=== PATIENT | female | born 1980 | race Two or more races ===

== ENCOUNTER → 2024-04-22 | Outpatient (BNVA) | payer BC, SELFPAY | END | disposition home or self-care (01) | PROVIDERS: PCP Nurse Practitioner Family; Referring Provider Nurse Practitioner Family; Visit Provider Urology | DX: N28.1 Cyst of kidney, acquired (principal); G89.4 Chronic pain syndrome; I10 Essential (primary) hypertension; Z87.440 Personal history of urinary (tract) infections; K21.9 Gastro-esophageal reflux disease without esophagitis | CPT/HCPCS: 81003; 99212; G0463 ==

== ENCOUNTER → 2024-06-11 | Outpatient (CLI) | payer BC, SELFPAY ==
[2024-06-11 12:43] LABS: Collection Type, Urine Clean Catch
[2024-06-11 13:05] LABS: Basophils % (Auto) 0 % (0-2.5); Eosinophils # (Auto) 0.1 Thou/mm3 (0.0-0.5); Eosinophils % (Auto) 1 % (0-10); Hemoglobin 12.5 g/dL (12.0-16.0); Immature Granulocytes % (Auto) 0 % (0-0); Immature Granulocytes Auto 0.02 Thou/mm3 (0.00-0.00); Lymphocytes # (Auto) 1.8 Thou/mm3 (1.0-4.8); Lymphocytes % (Auto) 24 % (10-50); Mean Corpuscular HGB Conc 32.1 g/dl (31.0-37.0); Mean Corpuscular Hemoglobin 25.6 pg (25.0-35.0); Mean Corpuscular Volume 80 fL (80-100); Monocytes # (Auto) 0.4 Thou/mm3 (0.0-0.8); Monocytes % (Auto) 5 % (0-12); Neutrophils # (Auto) 5.3 Thou/mm3 (1.8-7.7); Neutrophils % (Auto) 70 % (37-80); Nucleated Red Blood Cell % 0 /100 WBC (0); Platelet Count 334 Thou/mm3 (140-440); RDW Standard Deviation 38.2 fL (36.4-46.3); Red Blood Count 4.88 Miln/mm3 (4.00-5.20); White Blood Count 7.5 Thou/mm3 (3.6-11.0)
[2024-06-11 13:13] LABS: Bilirubin,Urine Negative (Negative); Blood,Urine Negative (Negative); Clarity,Urine Clear (Clear/Hazy); Color,Urine Lt-Yellow (Lt Yel-Yel); Culture Indicated,Urine Not Indicated; Glucose, Urine Negative (Negative); Ketones,Urine Negative (Negative); Leukocyte Esterase,Urine Negative (Negative); Nitrite,Urine Negative (Negative); PH,Urine 5.5 (5.0-7.0); Protein,Urine Negative (Neg - Trace); RBC,Urine 2 /hpf (0-3); Specific Gravity,Urine 1.025 (1.001-1.035); Squamous Epithelial Cell,Urine 1 /hpf (0-5); Urobilinogen,Urine Negative mg/dL (0.0-1.0); WBC,Urine 1 /hpf (0-5)
[2024-06-11 13:29] LABS: Glucose Estimated Average 111 mg/dL (80-131); Hemoglobin A1C 5.5 % Hgb (4.8-6.0)
[2024-06-11 13:33] LABS: Alanine Aminotransferase 39 U/L (10-49); Albumin, Serum 4.7 gm/dL (3.5-5.0); Albumin/Globulin Ratio 1.6 (1.2-2.2); Alkaline Phosphatase 129 U/L (46-116); Anion Gap 8 (7-16); Aspartate Amino Transferase 32 U/L (0-34); BUN/Creatinine Ratio 19 Ratio (12-20); Bilirubin,Total 0.7 mg/dL (0.3-1.2); Blood Urea Nitrogen 13 mg/dL (9-23); Calcium 9.8 mg/dL (8.3-10.6); Calcium (Corrected) 9.8 mg/dL (8.5-10.1); Carbon Dioxide 26.9 mMol/L (20.0-31.0); Cardiac Risk Estimate 6.1 RATIO (3.7-5.6); Chloride 106 mMol/L (98-107); Cholesterol 249 mg/dL (132-200); Creatinine (Component) 0.7 mg/dL (0.6-1.3); Glucose 87 mg/dL (74-106); HDL Cholesterol 41 mg/dL (40-60); LDL Cholesterol,Calculated 173 mg/dL (0-130); Magnesium 2.1 mg/dL (1.6-2.6); Osmolality,Calculated 280 (275-295); Phosphorous 3.9 mg/dL (2.4-5.1); Potassium 4.1 mMol/L (3.4-5.1); Sodium 141 mMol/L (136-145); Total Protein 7.7 gm/dL (5.7-8.2); Triglycerides 177 mg/dL (30-150); eGFR > 60 See Note
[2024-06-11 13:33] LABS: Creatinine MALB Rnd Ur 160 mg/dL (30-125); Microalbumin Creat Ratio 6 mg/gCrea (<30); Microalbumin, Random Urine 9 mg/L (0-300)
[2024-06-11 13:36] LABS: Vitamin D 25 Hydroxy Total 22.7 ng/mL (7.3-40.2)
[2024-06-11 13:37] LABS: Free T4 (Free Thyroxine) 1.23 ng/dL (0.89-1.76); Thyroid Stimulating Hormone 2.68 uIU/mL (0.55-4.78)
== END | disposition home or self-care (01) ==
LOC: COPL 12:02
PROVIDERS: PCP Nurse Practitioner Family; Referring Provider Nurse Practitioner Family; Visit Provider Nurse Practitioner Family
DX: G44.209 Tension-type headache, unspecified, not intractable (principal); L29.2 Pruritus vulvae; U07.1 COVID-19; M21.41 Flat foot [pes planus] (acquired), right foot; A49.01 Methicillin susceptible Staphylococcus aureus infection, unspecified site; B36.9 Superficial mycosis, unspecified; E55.9 Vitamin D deficiency, unspecified; R21 Rash and other nonspecific skin eruption; M79.7 Fibromyalgia; E66.01 Morbid (severe) obesity due to excess calories; M47.891 Other spondylosis, occipito-atlanto-axial region; M54.2 Cervicalgia; M54.6 Pain in thoracic spine; M06.09 Rheumatoid arthritis without rheumatoid factor, multiple sites; Z68.33 Body mass index [BMI] 33.0-33.9, adult; F40.243 Fear of flying; R10.9 Unspecified abdominal pain; J02.8 Acute pharyngitis due to other specified organisms; R73.03 Prediabetes; I10 Essential (primary) hypertension; M19.90 Unspecified osteoarthritis, unspecified site; D50.9 Iron deficiency anemia, unspecified; R09.81 Nasal congestion; K76.0 Fatty (change of) liver, not elsewhere classified; M41.9 Scoliosis, unspecified; G43.011 Migraine without aura, intractable, with status migrainosus; M79.672 Pain in left foot; N39.0 Urinary tract infection, site not specified; R05.3 Chronic cough; L03.213 Periorbital cellulitis; J45.909 Unspecified asthma, uncomplicated; F41.8 Other specified anxiety disorders; N28.9 Disorder of kidney and ureter, unspecified; N64.3 Galactorrhea not associated with childbirth; M89.8X1 Other specified disorders of bone, shoulder; R74.8 Abnormal levels of other serum enzymes
CPT/HCPCS: 36415; 80053; 80061; 81001; 82043; 82306; 82570; 82670; 83001; 83002; 83036; 83735; 83970; 84100; 84144; 84146; 84402; 84403; 84439; 84443; 85025

== ENCOUNTER → 2024-06-25 | Outpatient (CLI) | payer BC, SELFPAY ==
--- NOTE | 2024-06-25 | XR_ITS ---
Examination: Screening digital mammography, bilateral Computer aided detection 3-D breast Tomosynthesis, bilateral Date and time of exam: June 25, 2024 1013 hours Compared to mammograms dating to April 05, 2019 Indication: Screening Technique: Nonmagnified MLO, CC views of the breasts to been obtained, reconstructed from 3-D Tomosynthesis images. R2 computer aided detection program utilized for evaluation of suspicious masses and/or abnormal calcifications. 3-D Tomosynthesis images obtained. Findings: The breasts are heterogeneously dense, which may obscure small masses 24 mm focal asymmetry upper outer left breast anterior depth Benign calcifications Impression: BI-RADS Category 0: Incomplete: Need additional imaging evaluation 24 mm focal asymmetry upper outer left breast anterior depth Recommend follow-up spot tomographic views of this asymmetry as well as bilateral breast sonography to complete workup
== END | disposition home or self-care (01) ==
LOC: CDIM 09:43
PROVIDERS: Referring Provider Nurse Practitioner Family; Visit Provider Nurse Practitioner Family
DX: Z12.31 Encounter for screening mammogram for malignant neoplasm of breast (principal); R92.8 Other abnormal and inconclusive findings on diagnostic imaging of breast; N64.89 Other specified disorders of breast
CPT/HCPCS: 77063; 77067

== ENCOUNTER → 2024-08-03 | Outpatient (CLI) | payer BC, SELFPAY ==
[2024-08-01 16:34] LABS: HCG Qualitative,Urine Negative
--- NOTE | 2024-08-03 12:00 | XR_ITS ---
Examination: MRI of brain without intravenous contrast. MRI brain with intravenous contrast. Date and time of exam:August 03, 2024 Pro 16 hours Comparison March 29, 2022 INDICATIONS: Left-sided headaches 7 years, galactorrhea one year, diagnosis prolactin secreting pituitary adenoma Technique: Multiple axial and sagittal images of the brain to been obtained. Siemens high-resolution 1.52 Linda short bore scanner utilized. Sagittal sections, T1 weighted images, TR 500, TE 14, are performed. Axial sections proton-density and T2-weighted images have been obtained. Inversion recovery axial images, TR 9260, TE 111, TR 2500. Diffusion weighted images, axial sections, TR 4800, TE 128, B value 1000. Axial sections, ADC map, TR 4800, TE 128. Axial and coronal images were also obtained post 17 cc gadolinium administered intravenously. Findings:: Enlargement of the sella turcica is not present. The optic chiasm and infundibular stalk are not remarkable. There is no localized enlargement of the medulla or glory. Fourth ventricle and cerebellar tonsils appear normal in position. No subacute area of hemorrhage density is seen. Fourth ventricle is midline. Mass in the cerebellopontine angle region is not evident. 7th and 8th nerve complexes exhibit symmetry Globes are symmetrical Orbital musculature including medial lateral rectus muscles do not exhibit abnormality Increased white matter signal is not seen Effacement of the cortical sulcal markings is not identified. Mass effect upon the ventricular system is not identified. Diffusion-weighted images demonstrate no focus of restricted diffusion Contrast images demonstrate signal deficit 4 mm in the left pituitary Impression: 4 mm pituitary microadenoma
== END | disposition home or self-care (01) ==
LOC: SMRI 11:47
PROVIDERS: Referring Provider Specialist; Visit Provider Specialist
DX: D35.2 Benign neoplasm of pituitary gland (principal); Z32.00 Encounter for pregnancy test, result unknown
CPT/HCPCS: 70553; 81025; A9579

== ENCOUNTER → 2024-08-26 | Outpatient (CLI) | payer BC, SELFPAY ==
--- NOTE | 2024-08-26 10:00 | XR_ITS ---
Examination: Breast ultrasound complete, bilateral Date and time of exam: August 26, 2024 1023 hours INDICATIONS: Mammogram June 25 2024 24 mm focal asymmetry upper outer left breast anterior depth Technique: Real-time grayscale ultrasonographic imaging bilateral breasts, including all 4 quadrants as well as nipple retroareolar and axillary regions. Findings: Sonographic images right breast 9:00 nodule circumscribed 5 x 4 mm Sonographic images left breast 1:00 cyst 5 x 6 mm 5:00 nodule circumscribed 4 x 6 mm IMPRESSION: BI-RADS Category 3: Probably benign findings One additional 6 month bilateral breast sonography follow-up needed to document stability of solid nodules described above
--- NOTE | 2024-08-26 11:15 | XR_ITS ---
Examination: Diagnostic digital mammography, unilateral, left Computer aided detection 3-D breast Tomosynthesis, unilateral Date and time of exam: 12/26/2024 1055 hours INDICATIONS: Mammogram June 25, 2024 24 mm focal asymmetry left breast Technique: Nonmagnified MLO, CC views of the left breast have been obtained, reconstructed from 3-D Tomosynthesis images. R2 computer aided detection program utilized for evaluation of suspicious masses and/or abnormal calcifications. 3-D Tomosynthesis images obtained. Findings: The breast is heterogeneously dense, which may obscure small masses 8 mm focal asymmetry is noted outer left breast on the spot compression CC view Impression: BI-RADS category 3: Probably benign findings One additional 6 month left mammogram follow-up is needed to document stability of 8 mm focal asymmetry outer left breast
== END | disposition home or self-care (01) ==
LOC: CDIM 10:08
PROVIDERS: PCP Nurse Practitioner Family; Referring Provider Nurse Practitioner Family; Visit Provider Nurse Practitioner Family
DX: N63.23 Unspecified lump in the left breast, lower outer quadrant (principal); N60.02 Solitary cyst of left breast; N64.89 Other specified disorders of breast; R92.332 Mammographic heterogeneous density, left breast
CPT/HCPCS: 76641; 77061; 77065; G0279

== ENCOUNTER → 2024-10-11 | Outpatient (CLI) | payer BC, SELFPAY ==
--- NOTE | 2024-10-11 12:30 | XR_ITS ---
Examination: Retroperitoneal ultrasound, complete Technique: Multiple high resolution grayscale images of the retroperitoneum obtained, including kidneys and bladder. Exam date and time:October 11, 2024 1208 hours INDICATIONS: Hypodense 16mm mass posterior left kidney on CT urogram February 22, 2023 FINDINGS: Right kidney 11.1 cm renal cortex 2.2 cm Left kidney 10.6 cm renal cortex 2.3 cm Lower pole left renal cystic mass with septation 24 x 24 mm Contracted urinary bladder, no bladder mass IMPRESSION: Recommend 3-6 month follow-up renal sonography to confirm benign septated cyst lower pole left kidney
== END | disposition home or self-care (01) ==
LOC: CDIM 11:49
PROVIDERS: Referring Provider Urology; Visit Provider Urology
DX: N28.1 Cyst of kidney, acquired (principal)
CPT/HCPCS: 76770

== ENCOUNTER → 2024-10-21 | Outpatient (BNVA) | payer BC, SELFPAY | END | disposition home or self-care (01) | PROVIDERS: PCP Nurse Practitioner Family; Referring Provider Nurse Practitioner Family; Visit Provider Urology | DX: G89.4 Chronic pain syndrome (principal); R10.2 Pelvic and perineal pain; Z87.440 Personal history of urinary (tract) infections; I10 Essential (primary) hypertension; N30.10 Interstitial cystitis (chronic) without hematuria | CPT/HCPCS: 81003; 99212; G0463 ==

== ENCOUNTER → 2024-11-05 | Outpatient (CLI) | payer OTHER, SELFPAY ==
--- NOTE | 2024-11-05 13:15 | XR_ITS ---
Examination: Sinus series 4 views TECHNIQUE: Mathew Gutierrez lateral submentovertex sinus series 4 views Date and time: November 05, 2024, 1518 hours INDICATIONS: Acute sinusitis sinus pressure and pain beginning December 2023. FINDINGS: Prominent opacity in the frontal ethmoid air cells No fluid levels No retention cysts IMPRESSION: Significant chronic frontal ethmoid sinusitis
--- NOTE | 2024-11-05 13:45 | XR_ITS ---
Exam: MRI knee with intra-articular contrast MRI knee arthrography Date and time of exam: November 05, T2 thousand 25, 1328 hrs. Indications: Patient fell April 2023 with injury to the knee, knee pain Technique: Multiple axial, coronal, and sagittal sections on the knee have been obtained. T2-Weighted sagittal, fat-suppressed images, TR 3,500, TE 62, T2 weighted coronal fat-saturated images, TR 3,500, TE 62 Proton density sagittal sections, TR 1800, TE 31. T-1 weighted coronal images, TR 524, TE 13.0 Knee arthrography by contrast present lateral to the knee, 9 the knee joint Findings: Medial meniscus anterior horn intact. Medial meniscus, body intact. Posterior horn medial meniscus intact. Lateral meniscus anterior horn is intact Lateral meniscus, body is intact Posterior horn lateral meniscus is intact Anterior cruciate ligament appears intact. Posterior cruciate ligament appears intact. Knee effusion is small. Quadriceps and patellar tendons appear intact. There is no evidence of tendinosis. Inflammatory change or fracture of Hoffa's fat pad is not seen. Medial patellar facet demonstrates mild thinning. Lateral patellar facet cartilage demonstrates mild thinning. Trochlear cartilage demonstrates mild thinning. Marrow signal adequate. Medial collateral ligament appears intact. No meniscocapsular separation is seen. Illiotibial band and fibular collateral ligament are intact. Biceps femoris tendons appear intact. Medial femoral condylar articular cartilage demonstrates mild thinning. Lateral femoral condylar articular cartilage demonstratesmild thinning. Tibial plateau cartilage demonstrates mild thinning. Impression: Menisci, cruciate and collateral ligaments intact
== END | disposition home or self-care (01) ==
LOC: SIRX 13:20
PROVIDERS: PCP Family Medicine; Referring Provider Family Medicine; Visit Provider Family Medicine
DX: M23.331 Other meniscus derangements, other medial meniscus, right knee (principal)
CPT/HCPCS: 27369; 73580; 73722

== ENCOUNTER → 2025-01-24 | Outpatient (CLI) | payer BC, SELFPAY ==
--- NOTE | 2025-01-24 13:47 | XR_ITS ---
EXAMINATION: Cervical spine, 5 views Technique: Cervical spine AP, AP odontoid, lateral, bilateral obliques, 5 views Exam date and time: January 24, 2025, 1350 hours, comparison September 09, 2022 INDICATIONS: Neck pain 1 year FINDINGS: Reversal normal cervical lordosis No cervical fracture. Mild disc narrowing C5-C6 No significant neuroforaminal stenosis IMPRESSION: Early degenerative disc disease C5-C6
[2025-01-24 14:19] LABS: Collection Type, Urine Clean Catch
[2025-01-24 16:31] LABS: Bilirubin,Urine Negative (Negative); Blood,Urine Negative (Negative); Clarity,Urine Clear (Clear/Hazy); Color,Urine Lt-Yellow (Lt Yel-Yel); Glucose, Urine Negative (Negative); Ketones,Urine Negative (Negative); Leukocyte Esterase,Urine Negative (Negative); Nitrite,Urine Negative (Negative); PH,Urine 7.5 (5.0-7.0); Protein,Urine Negative (Neg - Trace); RBC,Urine 4 /hpf (0-3); Specific Gravity,Urine 1.021 (1.001-1.035); Squamous Epithelial Cell,Urine 3 /hpf (0-5); Urobilinogen,Urine Negative mg/dL (0.0-1.0); WBC,Urine 1 /hpf (0-5)
== END | disposition home or self-care (01) ==
LOC: COPL 13:36
PROVIDERS: PCP Family Medicine; Referring Provider Family Medicine; Visit Provider Radiology Diagnostic Radiology
DX: M50.322 Other cervical disc degeneration at C5-C6 level (principal); R31.1 Benign essential microscopic hematuria
CPT/HCPCS: 72050; 81001

== ENCOUNTER → 2025-01-31 | Outpatient (BNVA) | payer BC, SELFPAY | END | disposition home or self-care (01) | PROVIDERS: PCP Nurse Practitioner Family; Referring Provider Nurse Practitioner Family; Visit Provider Urology | DX: N28.1 Cyst of kidney, acquired (principal) | CPT/HCPCS: 99212; G0463 ==